=== PATIENT | male | born 1990 | race Caucasian/White ===

== ENCOUNTER 2017-06-27 01:18 | Emergency (ER) | payer BC, OTHER ==
[~2017-06-27 01:18] MED LIST: RISPERDAL PO
--- NOTE | 2017-06-27 01:41 | PD ---
HPI Chief Complaint: psychiatric evaluation Time Seen by Provider: 01:38 Travel History International Travel<30 days: No Contact w/Intl Traveler<30days: No History of Present Illness HPI Patient comes into the emergency Department under [place] act by police for allegedly making suicidal statements. Patient denies this. States that his mother and him were having a disagreement with caused her to have him [place] acted. Patient denies any medical complaints at this time. Denies any chest pain, shortness of breath, fevers, abdominal pain, nausea, vomiting, neck pain, back pain, or headaches. Denies anything making symptoms better or worse. PFSH Past Medical History Anxiety: Yes Depression: Yes Cancer: No Cardiovascular Problems: No Diabetes: No Diminished Hearing: No Endocrine: No Genitourinary: No Immune Disorder: No Musculoskeletal: No Neurologic: No Psychiatric: Yes Reproductive: No Respiratory: No Past Surgical History Oral Surgery: Yes (Molar removed) Tonsillectomy: Yes Social History Alcohol Use: Yes (weekly eggnog with a splash of burgundy during holiday) Tobacco Use: Yes (1/2 PPD) Substance Use: No Allergies-Medications (Allergen,Severity, Reaction): Coded Allergies: No Known Allergies (Unverified Adverse Reaction, Unknown, 06/27/17) Reported Meds & Prescriptions Reported Meds & Active Scripts Active Review of Systems Except as stated in HPI: all other systems reviewed are Neg Physical Exam Narrative GENERAL: Well-developed, well nourished, in no acute distress, and non-ill appearing. SKIN: Focused skin assessment warm and dry. HEAD: Atraumatic. Normocephalic. EYES: Pupils equal and round. EOMI. No scleral icterus. No injection or drainage. ENT: No nasal bleeding or discharge. Mucous membranes pink and moist. NECK: Trachea midline. No JVD. Supple. No nuclear rigidity. CARDIOVASCULAR: Regular rate and rhythm. No murmur appreciated. RESPIRATORY: No accessory muscle use. No respiratory distress. Clear to auscultation. Breath sounds equal bilaterally. MUSCULOSKELETAL: No obvious deformities. No clubbing. No cyanosis. No edema. Full range of motion. NEUROLOGICAL: Awake and alert. No obvious cranial nerve deficits. Motor grossly within normal limits. Normal speech. PSYCHIATRIC: Appropriate mood and affect; insight and judgment normal. Data Data Last Documented VS Vital Signs Date Time Temp Pulse Resp B/P (MAP) Pulse Ox O2 Delivery O2 Flow Rate FiO2 06/27/17 01:52 97.5 84 18 105/54 (71) 97 MDM Medical Decision Making Medical Screen Exam Complete: Yes Emergency Medical Condition: Yes Differential Diagnosis Homicidal, suicidal, bipolar, adjustment disorder, other Narrative Course Patient was seen and examined. Patient refused all laboratory work. Patient medically cleared for further treatment and evaluation by psych. Final disposition per psych. Diagnosis Primary Impression: Medical clearance for psychiatric admission Condition: Stable Aquiles Mayo Jun 27, 2017 01:41
[2017-06-27 01:52] VITALS: BP 105/54; PULSE 84; RESP 18; TEMP 97.5; O2SAT 97
[2017-06-27 18:00] VITALS: BP 108/63; PULSE 101; RESP 18
[2017-07-02 14:45] LABS: BATH SALTS (MDPV) UR NEG (NEG); ECSTASY (MDMA) UR NEG (NEG); HEROIN (6-ACETYLMORPHINE) UR NEG (NEG); K2 SPICE UR NEG (NEG); OBMETHADONE UR NEG (NEG); PHENCYCLIDINE URINE NEG (NEG)
[2017-07-02 14:46] LABS: OBGABAPENTIN UR NEG (NEG); OBHYDROMORPHONE U NEG (NEG)
== END 2017-06-27 21:09 | disposition home or self-care (01) ==
LOC: NEPD 01:18 → NEPJ 21:09
DX: Z00.8 Encounter for other general examination (principal); F41.9 Anxiety disorder, unspecified; F32.9 Major depressive disorder, single episode, unspecified; F17.200 Nicotine dependence, unspecified, uncomplicated
CPT/HCPCS: 80307; 99285; G0481